=== PATIENT | male | born 1970 | race Caucasian/White ===

== ENCOUNTER 2020-02-08 06:18 | Day surgery (SDC) | payer BC, OTHER ==
[~2020-02-08 06:18] MED LIST: Lactated Ringers 1,000 ML IV SCH; Lidocaine 1%/Sod Bicarbonate in NS 8.4% 1 ML Syringe IDERM PRN; Sodium Chloride 0.9% 10 ML Syringe FLUSH PRN
[2020-02-08] MEDS ORDERED: Bupivacaine 0.25% 10 ML SDV ONE (06:28)
[2020-02-08] MEDS ORDERED: Lidocaine 1% 30 ML SDV ONE (06:28)
[2020-02-08] MEDS ORDERED: Propofol 200 MG/20 ML SDV ONE (06:39)
[2020-02-08] MEDS ORDERED: Lidocaine 1% 4 ML ONE (06:39)
[2020-02-08] MEDS ORDERED: Midazolam 1 MG/ML 2 ML SDV ONE (06:40)
[2020-02-08] MEDS ORDERED: fentaNYL 100 MCG/2 ML SDV ONE (06:40)
[2020-02-08] MEDS ORDERED: ceFAZolin 1 GM Vial ONE (06:41)
--- NOTE | 2020-02-08 06:51 | PCM.PREANE ---
Preanesthetic Assessment - Procedure Proposed Procedure: right index finger mass excision - Anesthesia/Transfusion/Family Hx Anesthesia History: Prior Anesthesia Without Reaction Family History of Anesthesia Reaction: No Transfusion History: No Prior Transfusion(s) - Review of Systems General: No Symptoms Pulmonary: No Symptoms Cardiovascular: No Symptoms Gastrointestinal: No Symptoms Neurological: No Symptoms Other: Reports: None - Physical Assessment NPO Status Date: 02/07/20 NPO Status Time: 19:00 Vital Signs: 131/90 58 97% 16 97.6 Height: 6 ft Weight: 89.358 kg ASA Class: 2 Mental Status: Alert & Oriented x3 Airway Class: Mallampati = 1 Dentition: Reports: Normal Dentition Thyro-Mental Finger Breadths: 3 Mouth Opening Finger Breadths: 3 ROM/Head Extension: Full Lungs: Clear to Auscultation, Normal Respiratory Effort Cardiovascular: Regular Rate, Regular Rhythm - Lab Values: Laboratory Last Values MRSA (PCR) Negative 01/25/20 17:01 - Allergies Allergies/Adverse Reactions: Allergies Allergy/AdvReac Type Severity Reaction Status Date / Time No Known Allergies Allergy Verified 02/07/20 14:20 - Blood Blood Available: No - Acknowledgements Anesthesia Type Planned: MAC Pt an Appropriate Candidate for the Planned Anesthesia: Yes Alternatives and Risks of Anesthesia Discussed w Pt/Guardian: Yes Pt/Guardian Understands and Agrees with Anesthesia Plan: Yes PreAnesthesia Questionnaire HEENT History: Reports: None Cardiovascular History: Reports: Hypertension Respiratory History: Reports: None Gastrointestinal History: Reports: None Genitourinary History: Reports: None FORESTRY FIRE AIDE History: Reports: None Musculoskeletal History: Reports: Arthritis, Gout Neurological History: Reports: None Psychiatric History: Reports: None Endocrine/Metabolic History: Reports: None Hematologic History: Reports: None Immunologic History: Reports: None Oncologic (Cancer) History: Reports: None Dermatologic History: Reports: None - Infectious Disease History Infectious Disease History: Reports: Chicken Pox - Past Surgical History Head Surgeries/Procedures: Reports: None HEENT Surgical History: Reports: None Cardiovascular Surgical History: Reports: None Respiratory Surgical History: Reports: None GI Surgical History: Reports: None Female Surgical History: Reports: None Male Surgical History: Reports: None Endocrine Surgical History: Reports: None Neurological Surgical History: Reports: C-Spine Musculoskeletal Surgical History: Reports: Arthroscopic Knee Other Musculoskeletal Surgeries/Procedures:: fusion of neck per pt Oncologic Surgical History: Reports: None Dermatological Surgical History: Reports: None - SUBSTANCE USE Tobacco Use Status *Q: Current Every Day Tobacco User Tobacco Use Within Last Twelve Months: Snuff/Dip Second Hand Smoke Exposure: No Days Per Week of Alcohol Use: 5 Number of Drinks Per Day: 2 Total Drinks Per Week: 10 Recreational Drug Use History: No - HOME MEDS Home Medications: Home Meds Losartan [Cozaar] 50 mg PO DAILY 10/12/18 [History] Cholecalciferol (Vitamin D3) [Vitamin D3] 5,000 unit PO DAILY 02/07/20 [History] Sour Moore Extract [Tart Moore Extract] 1,000 mg PO DAILY 02/07/20 [History] Acetaminophen/HYDROcodone [[place] 325-5 MG] 1 - 2 tab PO Q6H PRN #10 tablet 02/08/20 [Rx] - CURRENT (IN HOUSE) MEDS Current Meds: Current Medications Lactated Ringer's (Ringers, Lactated) 1,000 mls @ 125 mls/hr IV ASDIRECTED NELLY Stop: 02/08/20 23:00 Last Admin: 02/08/20 06:35 Dose: 125 mls/hr Documented by: Lidocaine/Sodium Bicarbonate (Buffered Lidocaine 1% In Ns 8.4%) 0.25 ml IDERM ONETIME PRN PRN Reason: Prior to IV Start Stop: 02/08/20 23:00 Sodium Chloride (Saline Flush) 10 ml FLUSH ASDIRECTED PRN PRN Reason: Keep Vein Open Stop: 02/08/20 23:00 Discontinued Medications Bupivacaine HCl (Sensorcaine-Mpf 0.25%) Confirm Administered Dose 30 ml .ROUTE .STK-MED ONE Stop: 02/08/20 06:29 Cefazolin Sodium (Ancef) Confirm Administered Dose 2 gm .ROUTE .STK-MED ONE Stop: 02/08/20 06:42 Fentanyl (Sublimaze) Confirm Administered Dose 100 mcg .ROUTE .STK-MED ONE Stop: 02/08/20 06:41 Lactated Ringer's (Ringers, Lactated) 1,000 mls @ 125 mls/hr IV ASDIRECTED NELLY Stop: 02/06/20 23:00 Lidocaine HCl (Xylocaine-Mpf 1%) Confirm Administered Dose 4 mls @ as directed .ROUTE .STK-MED ONE Stop: 02/08/20 06:40 Lidocaine HCl (Xylocaine-Mpf 1%) Confirm Administered Dose 30 ml .ROUTE .STK-MED ONE Stop: 02/08/20 06:29 Lidocaine/Sodium Bicarbonate (Buffered Lidocaine 1% In Ns 8.4%) 0.25 ml IDERM ONETIME PRN PRN Reason: Prior to IV Start Stop: 02/06/20 18:00 Midazolam HCl (Versed 1 Mg/Ml) Confirm Administered Dose 2 mg .ROUTE .STK-MED ONE Stop: 02/08/20 06:41 Propofol (Diprivan 20 Ml) Confirm Administered Dose 200 mg .ROUTE .STK-MED ONE Stop: 02/08/20 06:40 Sodium Chloride (Saline Flush) 10 ml FLUSH ASDIRECTED PRN PRN Reason: Keep Vein Open Stop: 02/06/20 18:00
[2020-02-08] MEDS ORDERED: Ketorolac 30 MG/ML SDV ONE (07:30)
--- NOTE | 2020-02-08 07:44 | PCM48HPAN ---
Post Anesthesia Note - EVALUATION WITHIN 48HRS OF ANESTHETIC Vital Signs in Normal Range: Yes Patient Participated in Evaluation: Yes Respiratory Function Stable: Yes Airway Patent: Yes Cardiovascular Function Stable: Yes Hydration Status Stable: Yes Pain Control Satisfactory: Yes Nausea and Vomiting Control Satisfactory: Yes Mental Status Recovered: Yes Vital Signs: Last Vital Signs Temp 97.6 F 02/08/20 06:20 Pulse 58 L 02/08/20 06:20 Resp 16 02/08/20 06:20 BP 131/90 02/08/20 06:20 Pulse Ox 97 02/08/20 06:20 0740 110/80 61 16 97.5 94%
[2020-02-08 08:31] VITALS: BP 116/84; PULSE 56
--- NOTE | 2020-02-21 15:37 | PCM.OPNOTE ---
- General Post-Op/Procedure Note Date of Surgery/Procedure: 02/08/20 Operative Procedure(s): right hand index finger mass excision Pre Op Diagnosis: right hand index finger mass Post-Op Diagnosis: Same Anesthesia Technique: Local, MAC Primary Surgeon: Michael Ragsdale Anesthesia Provider: Nahum Grajeda Morning Nanny: Lynda Perez EBL in mLs: 5 Complications: None Condition: Good
--- NOTE | 2020-02-22 07:07 | OR ---
DATE OF OPERATION: 02/08/2020 SURGEON: Michael Ragsdale MD OPERATION PERFORMED: Right hand index finger mass excision. PREOPERATIVE DIAGNOSIS: Right hand index finger mass. POSTOPERATIVE DIAGNOSIS: Right hand index finger mass. ANESTHESIA: Local MAC. ANESTHESIA PROVIDER: Nahum Grajeda CRNA CUPOLA CHARGER: Lynda Perez PA-C ESTIMATED BLOOD LOSS: Less than 5 mL. COMPLICATIONS: None. CONDITION: Stable. DESCRIPTION OF PROCEDURE: The patient was identified in the preoperative holding area where proper site was marked, identified by the surgeon. The patient was taken back to the operative theater, where after adequate anesthesia, the patient's right upper extremity was sterilely prepped and draped in the usual sterile fashion. OR time-out was performed. The patient received 2 g IV Ancef. At this time, 0.25% Marcaine and 1% lidocaine without epinephrine were used to anesthetize the index finger using a digital block and tendon sheath block. A longitudinal incision was then centered over the DIP joint over the mass. This was taken down. The patient was noted to have a lot of chalky tophi type material in there. This was then removed, taken all the way down to the joint. There were otherwise no signs of infection. It was irrigated with saline and then 4-0 nylon suture was used for closure of the skin. The patient had a sterile soft dressing applied and was sent to PACU in stable condition. [id number] /[id number]
== END 2020-02-08 08:17 | disposition home or self-care (01) ==
LOC: JD.SDS 06:18
PROVIDERS: ATTEND Orthopaedic Surgery
DX: M1A.9XX1 Chronic gout, unspecified, with tophus (tophi) (principal); F17.220 Nicotine dependence, chewing tobacco, uncomplicated; I10 Essential (primary) hypertension; Z98.890 Other specified postprocedural states; Z79.899 Other long term (current) drug therapy
CPT/HCPCS: 26160; 87641; J0690; J1885; J2001; J2250; J2704; J3010; J3490; J7120; 01810